=== PATIENT | female | born 1995 | race Caucasian/White ===

== ENCOUNTER 2023-02-18 12:41 | Emergency (ER) | payer OTHER | END 2023-02-18 16:31 | disposition home or self-care (01) | LOC: CSHERS 12:41 | DX: O99.891 Other specified diseases and conditions complicating pregnancy (principal); R10.9 Unspecified abdominal pain; Z3A.01 Less than 8 weeks gestation of pregnancy | CPT/HCPCS: 76856 ==

== ENCOUNTER 2023-10-10 19:30 | Inpatient (IN) | payer OTHER ==
[2023-10-17] MEDS ORDERED: Bupivacaine 0.25% HCL 30 ML VIAL ONE (08:00)
[2023-10-17] MEDS ORDERED: hydrALAZINE 20 MG/ML VIAL SLOW IVP PRN ×2 (08:40→17:15)
[2023-10-17] MEDS ORDERED: Acetaminophen 500 MG TAB PO PRN (08:40)
[2023-10-17] MEDS ORDERED: Ibuprofen 800 MG TAB PO PRN (08:40)
[2023-10-17] MEDS ORDERED: Docusate 100 MG CAP PO PRN (08:40)
[2023-10-17] MEDS ORDERED: Ondansetron PF 4 MG/2 ML Vial IVP PRN ×3 (08:40→17:15)
[2023-10-17] MEDS ORDERED: HYDROcodone/Acetaminophen 5/325 mg Tablet PO PRN ×2 (08:40)
[2023-10-17] MEDS ORDERED: Carboprost 250 MCG/ML AMP IM PRN (08:40)
[2023-10-17] MEDS ORDERED: Promethazine HCl 25 MG/ML VIAL IM PRN ×2 (08:40→13:37)
[2023-10-17] MEDS ORDERED: Diphenoxylate HCl/Atropine Tablet PO PRN ×2 (08:40)
[2023-10-17] MEDS ORDERED: fentaNYL 50 mcg/mL 1 mL Vial SLOW IVP PRN (08:40)
[2023-10-17] MEDS ORDERED: Lidocaine 1% (PF) 30 ML VIAL SC PRN (08:40)
[2023-10-17] MEDS ORDERED: Methylergonovine 0.2 MG/ML VIAL IM PRN (08:40)
[2023-10-17] MEDS ORDERED: Oxytocin 30 units/NS 500 ML 500 ML IV SCH ×4 (08:45→17:15)
[2023-10-17 09:23] VITALS: BMI 33.3
[2023-10-17 10:03] LABS: Hematocrit 34.8 % (34.9-44.5); Hemoglobin 11.4 g/dL (12.0-15.5); Mean Corpuscular HGB CONC 32.8 g/dL (32.0-36.0); Mean Corpuscular Hemoglobin 29.5 pg (27.0-33.0); Mean Corpuscular Volume 89.9 fl (81.6-98.3); Mean Platelet Volume 12.3 fl (7.4-10.4); Platelet Count 170 10x3/uL (150-450); RBC Distribution Width 14.5 % (11.5-14.5); Red Blood Cell (RBC) Count 3.87 10x6/uL (3.90-5.03); White Blood Cell (WBC) Count 8.5 10x3/uL (3.5-10.5)
[2023-10-17 10:34] LABS: HIV (1/2) Antibody/Antigen Non-Reactive (NonReactive); HIV 1/2 INDEX 0.16 S/CO (<1.00)
[2023-10-17 10:36] LABS: Syphilis Antibody Nonreactive (Nonreactive); Syphilis Antibody Index 0.04 S/CO (<1.00 Non-Reactive)
[2023-10-17 11:29] LABS: HBSAg Index 0.15 S/CO (0-0.99); Hep B Surf Ag - L&D Non-Reactive S/CO (NonReactive)
[2023-10-17] MEDS ORDERED: fentaNYL/Ropivacaine Epidural 100 ML ONE (11:37)
[2023-10-17] MEDS ORDERED: Acetaminophen 325 MG TAB PO PRN (13:37)
[2023-10-17] MEDS ORDERED: Naloxone HCl 0.4 mg/ml Vial IVP PRN ×2 (13:37)
[2023-10-17] MEDS ORDERED: ePHEDrine Sulfate 50 MG/10 ML VIAL SLOW IVP PRN (13:37)
[2023-10-17] MEDS ORDERED: Lactated Ringer's 500 ML IV PRN (13:37)
[2023-10-17] MEDS ORDERED: Moisturizing Cream (Eucerin) 113 GM JAR TOP PRN (13:37)
[2023-10-17] MEDS ORDERED: diphenhydrAMINE 50 MG/ML VIAL IVP PRN (13:37)
[2023-10-17] MEDS ORDERED: fentaNYL 2 mcg/Ropivacaine 0.2% Epidural 100 ML CADD EPIDURAL SCH (13:45)
[2023-10-17] MEDS ORDERED: Communication Order-Pharmacy FS SCH (13:45)
[2023-10-17] MEDS ORDERED: Tranexamic Acid 1,000 MG/10 ML VIAL ONE (14:32)
[2023-10-17] MEDS ORDERED: fentaNYL 50 mcg/mL 1 mL Vial ONE (15:10)
[2023-10-17] MEDS ORDERED: Misoprostol 200 MCG TAB ONE (16:19)
[2023-10-17] MEDS ORDERED: Oxytocin 10 UNITS/ML VIAL ONE (16:22)
[2023-10-17] MEDS ORDERED: Benzocaine-Menthol 82.5 ML CAN TOP PRN (17:15)
[2023-10-17] MEDS ORDERED: Bisacodyl 10 MG SUPP PR PRN (17:15)
[2023-10-17] MEDS ORDERED: Milk Of Magnesia 30 ML UDCUP PO PRN (17:15)
[2023-10-17] MEDS ORDERED: Preparation H Ointment 28 GM TUBE PR PRN (17:15)
[2023-10-17] MEDS ORDERED: Boostrix 0.5 ML (Tdap) VIAL (>/=7 yrs of age) IM ONE (17:15)
[2023-10-17] MEDS ORDERED: Misoprostol 200 MCG TAB VAG PRN (17:15)
[2023-10-17] MEDS ORDERED: Lanolin Ointment 7 GM TUBE TOP PRN (17:15)
[2023-10-17] MEDS: Lactated Ringer's 1,000 ML IV SCH (19:06)
[2023-10-17] MEDS: Ibuprofen 800 MG TAB PO SCH (21:30)
[2023-10-17] MEDS: Docusate 100 MG CAP PO SCH (21:30)
[2023-10-18] MEDS: Lactated Ringer's 1,000 ML IV SCH ×3 (03:59→18:21)
[2023-10-18 04:19] LABS: Hematocrit 25.1 % (34.9-44.5); Hemoglobin 8.1 g/dL (12.0-15.5); Mean Corpuscular HGB CONC 32.3 g/dL (32.0-36.0); Mean Platelet Volume 12.6 fl (7.4-10.4); Platelet Count 143 10x3/uL (150-450); RBC Distribution Width 14.4 % (11.5-14.5); Red Blood Cell (RBC) Count 2.79 10x6/uL (3.90-5.03); White Blood Cell (WBC) Count 11.7 10x3/uL (3.5-10.5)
[2023-10-18] MEDS: Ibuprofen 800 MG TAB PO SCH ×3 (06:35→21:36)
[2023-10-18] MEDS: Prenatal Vitamin 1 TAB PO SCH (08:17)
[2023-10-18] MEDS: Ferrous Sulfate 325 MG TAB PO SCH ×2 (08:17→18:12)
[2023-10-18] MEDS: Docusate 100 MG CAP PO SCH ×2 (08:17→21:36)
[2023-10-18] MEDS ORDERED: HYDROcodone/Acetaminophen 5/325 mg Tablet PO PRN ×2 (13:40)
[2023-10-18] MEDS ORDERED: Zolpidem Tartrate 5 MG TAB PO PRN (13:40)
[2023-10-19] MEDS: Lactated Ringer's 1,000 ML IV SCH ×2 (05:03→08:56)
[2023-10-19] MEDS: Ibuprofen 800 MG TAB PO SCH (05:09)
[2023-10-19 07:44] VITALS: BP 116/69; TEMP 98.1
[2023-10-19] MEDS: Prenatal Vitamin 1 TAB PO SCH (09:53)
[2023-10-19] MEDS: Docusate 100 MG CAP PO SCH (09:53)
[2023-10-19] MEDS: Ferrous Sulfate 325 MG TAB PO SCH (09:53)
== END 2023-10-19 12:05 | disposition home or self-care (01) | DRG 806 ==
LOC: CSHLD 10-17 08:37 → CSHPP 10-17 18:32
PROVIDERS: ADMIT Obstetrics & Gynecology; ATTEND Obstetrics & Gynecology
PROC: 10E0XZZ Delivery of Products of Conception, External Approach (ICD-10-PCS; principal; 2023-10-17)
PROC: 0HQ9XZZ Repair Perineum Skin, External Approach (ICD-10-PCS; 2023-10-17)
PROC: 0W8NXZZ Division of Female Perineum, External Approach (ICD-10-PCS; 2023-10-17)
DX: O42.02 Full-term premature rupture of membranes, onset of labor within 24 hours of rupture (principal); O99.354 Diseases of the nervous system complicating childbirth; Z37.0 Single live birth; D64.9 Anemia, unspecified; O99.02 Anemia complicating childbirth; Z3A.40 40 weeks gestation of pregnancy; G43.909 Migraine, unspecified, not intractable, without status migrainosus; G47.419 Narcolepsy without cataplexy; Z88.2 Allergy status to sulfonamides; O70.0 First degree perineal laceration during delivery
CPT/HCPCS: 36415; 85027; 86780; 86850; 86900; 86901; 87340; 87389; J2405; J2590; S0020